=== PATIENT | female | born 1990 | race Caucasian/White ===

== ENCOUNTER 2018-04-21 22:36 | Emergency (ER) | payer BC ==
[~2018-04-21] VITALS: Ht 167.6 cm; Wt 70.8 kg
[2018-04-22] VITALS: BP 120/80
== END 2018-04-22 00:09 | disposition home or self-care (01) ==
LOC: FSED 22:36
DX: R05 Cough (principal); J20.9 Acute bronchitis, unspecified
CPT/HCPCS: 71046; 80053; 81025; 82553; 84484; 85025; 87040; 93005; 99283

== ENCOUNTER → 2018-08-26 | Outpatient (CLI) | payer BC ==
[2018-08-26 06:48] LABS: BASOPHILS % 0.3 % (0.0-1.0); EOSINOPHILS # (AUTO) 0.1 (0.0-0.4); EOSINOPHILS % 0.8 % (0.0-6.0); HEMATOCRIT 41.9 % (34.2-44.1); HEMOGLOBIN 13.6 g/dL (12.0-16.0); LYMPHOCYTES # (AUTO) 2.3 (1.0-3.2); LYMPHOCYTES % 34.5 % (18.0-39.1); MEAN CORPUSCULAR HEMOGLOBIN 31.9 pg (28-32); MEAN CORPUSCULAR HGB CONC 32.5 g/dL (31-35); MEAN CORPUSCULAR VOLUME 98.1 fL (81-99); MONOCYTES # (AUTO) 0.5 (0.2-0.8); MONOCYTES % 6.8 % (4.4-11.3); NEUTROPHILS # (AUTO) 3.8 (2.1-6.9); NEUTROPHILS % 57.4 % (38.7-80.0); PLATELET COUNT 224 x10e3/uL (140-360); RED BLOOD COUNT 4.27 x10e6/uL (3.6-5.1); RED CELL DISTRIBUTION WIDTH 12.4 % (11.7-14.4)
[2018-08-26 07:07] LABS: ALANINE AMINOTRANSFERASE 9 IU/L (0-55); ALBUMIN 4.3 g/dL (3.5-5.0); ALBUMIN/GLOBULIN RATIO 1.4 (0.8-2.0); ALKALINE PHOSPHATASE 60 IU/L (40-150); ANION GAP 12.7 mmol/L (8-16); BLOOD UREA NITROGEN 6 mg/dL (7-26); BUN/CREATININE RATIO 7 (6-25); CALCIUM 9.5 mg/dL (8.4-10.2); CARBON DIOXIDE 25 mmol/L (22-29); CHLORIDE 105 mmol/L (98-107); CREATININE, SERUM 0.85 mg/dL (0.57-1.11); EST GLOMERULAR FILTRATION RATE > 60 ML/MIN (60-); GLUCOSE 89 mg/dL (74-118); POTASSIUM 3.7 mmol/L (3.5-5.1); SODIUM 139 mmol/L (136-145)
[2018-08-26 07:27] LABS: FREE T4 (FREE THYROXINE) 1.02 ng/dL (0.9-1.8)
[2018-08-26 07:50] LABS: CHOL/HDL RATIO 4.6 (3.0-3.6); CHOLESTEROL 155 MD/DL (0-199); HDL CHOLESTEROL 34 MG/DL (40-60); LDL CHOLESTEROL 85 MG/DL (60-130); TRIGLYCERIDES 178 MG/DL (0-149)
== END ==
LOC: LAB 06:36
PROVIDERS: ATTEND Internal Medicine
DX: R53.83 Other fatigue (principal)
CPT/HCPCS: 36415; 80053; 80061; 84439; 84479; 85025

== ENCOUNTER 2018-09-27 07:22 | Emergency (ER) | payer BC ==
[~2018-09-27] VITALS: Ht 167.6 cm; Wt 60.8 kg
[2018-09-27] MEDS ORDERED: DIAZEPAM INJ 5 MG/ML 2 ML IM ONE (08:00)
[2018-09-27] MEDS ORDERED: KETOROLAC TROMETHAMINE 60 MG/2 ML VIAL IM ONE (08:00)
[2018-09-27] MEDS ORDERED: HYDROCODONE/APAP 5MG-325MG TAB PO ONE (08:00)
[2018-09-27] MEDS ORDERED: AMBIEN CR12.5 MG (08:02)
[2018-09-27] MEDS ORDERED: ADDERALL 30 MG30 MG (08:02)
--- NOTE | 2018-09-27 08:03 | NUR ---
To X-Ray for plain film of spine.
--- NOTE | 2018-09-27 08:04 | NUR ---
Orders received for Toradol, valium, and norco. Toradol given as ordered, pt called a ride. Awaiting arrival of pts ride home to administer narcotic medications.
--- NOTE | 2018-09-27 08:29 | NUR ---
In to give pt Flexeril and [place] as ordered. The pt states the Toradol gave her a migraine and has not relieved her back pain. Explained to pt that it may take a while longer for the Toradol to take full affect. She nodded her head stating, "it gave me a migraine, so yep, it's lights out." She then stated "I am not happy" and shook her head "no". Pt has full ROM of the neck. Digital Project Coordinator is at her bedside to take pt home.
[2018-09-27] MEDS ORDERED: CYCLOBENZAPRINE HCL 10 MG TAB PO ONE (08:30)
--- NOTE | 2018-09-27 08:39 | Diagnostic Imaging Report ---
EXAM: Thoracic spine radiographs - 3 views; lumbar spine radiographs - 3 views DATE: 09/27/2018 INDICATION: Pulled back at work, poor body mechanics. COMPARISON: None FINDINGS: BONES: Mild levoconvex curvature of the upper lumbar spine. No acute displaced fractures. Vertebral body heights are preserved. DISCS: Disc spaces are well preserved. JOINTS: The facet joints and sacroiliac joints are unremarkable. SOFT TISSUES: Unremarkable. Visualized intrathoracic structures are unremarkable. IMPRESSION: No acute thoracic or lumbar spine radiographic findings. Signed by: Dr. Mira Ellis MD on 09/27/2018 8:36 AM
--- NOTE | 2018-09-27 08:52 | NUR ---
Pt came to the desk asking for a list of meds she has been given during this visit. She requested of Dr. Hamilton an injection of 0.25mg of Dilaudid. Pt advised that we do not keep Dilaudid here. Pt offered Fentanyl 50mcg by ERP. She refused stating she has never taken it, and she gives Fentanyl as a drip in the ICU and "it scares the shit [id number] of me". Pt then states "ok, I'll go hide in the dark room".
[2018-09-27] MEDS ORDERED: FENTANYL CITRATE/PF 100MCG/2 ML INJ IJ ONE (09:00)
--- NOTE | 2018-09-27 09:03 | NUR ---
ERP notified RN that pt stated she did not take morphine because it is like "water". She received it after a surgery and it did nothing to help her.
--- NOTE | 2018-09-27 09:14 | NUR ---
Pt discharged home. Heart rate remains 120-125 with stable B/P. MD aware. Pt exited the ER with a steady gait, no shuffling of the feet noted, no limited ROM noted. MENARD, AA&O, no respiratory distress noted, no complaints of chest pain or discomfort, no cyanosis noted. accompanied by a friend/family member to drive her home.
[2018-09-27 09:22] VITALS: BP 116/78
== END 2018-09-27 09:25 | disposition home or self-care (01) ==
LOC: FSED 07:22
DX: M54.6 Pain in thoracic spine (principal); M54.5 Low back pain; S23.3XXA Sprain of ligaments of thoracic spine, initial encounter; S39.012A Strain of muscle, fascia and tendon of lower back, initial encounter; X50.0XXA Overexertion from strenuous movement or load, initial encounter; Y99.0 Civilian activity done for income or pay; F90.0 Attention-deficit hyperactivity disorder, predominantly inattentive type
CPT/HCPCS: 72072; 72100; 81025; 99283; J1885; J3360